=== PATIENT | female | born 1955 | race Caucasian/White ===

== ENCOUNTER 2023-09-02 13:26 | Emergency (ER) | payer MEDICARE, BC ==
[~2023-09-02] VITALS: Ht 152.4 cm; Wt 48.5 kg
[2023-09-02 14:08] VITALS: TEMP 97.7
[2023-09-02 14:56] LABS: BASOPHILS # (AUTO) 0.1 X10'3 (0-0.2); BASOPHILS % (AUTO) 0.6 % (0-1); EOSINOPHILS # (AUTO) 0.1 X10'3 (0-0.9); EOSINOPHILS % (AUTO) 1.5 % (0-6); HEMATOCRIT 47.7 % (35.0-45.0); LYMPHOCYTES # (AUTO) 1.2 X10'3 (1.1-4.8); LYMPHOCYTES % (AUTO) 12.6 % (21-51); MEAN CORPUSCULAR HEMOGLOBIN 31.3 PG (27.0-31.0); MEAN CORPUSCULAR HGB CONC 33.6 g/dL (33.0-36.5); MEAN CORPUSCULAR VOLUME 93.1 FL (78-98); MEAN PLATELET VOLUME 8.4 FL (7.4-10.4); MONOCYTES # (AUTO) 0.9 X10'3 (0-0.9); MONOCYTES % (AUTO) 9.4 % (2-12); NEUTROPHILS % (AUTO) 75.9 % (42-75); PLATELET COUNT 201 X10'3 (140-440); RED BLOOD COUNT 5.13 X10'6 (4.20-5.60); RED CELL DISTRIBUTION WIDTH 13.8 % (11.5-14.5); WHITE BLOOD COUNT 9.2 X10'3 (4.5-11.0)
[2023-09-02 14:58] LABS: APTT 27 SECONDS (22-32); INR 0.9 INR; PROTHROMBIN TIME 10.2 SECONDS (9.0-12.0)
[2023-09-02 14:59] LABS: ALANINE AMINOTRANSFERASE 14 U/L (12-78); ALBUMIN 3.1 G/DL (3.4-5.0); ALBUMIN/GLOBULIN RATIO 0.8 (1.1-1.5); ALKALINE PHOSPHATASE 52 IU/L (46-116); ANION GAP 10 (8-16); ASPARTATE AMINO TRANSFERASE 18 U/L (10-37); BILIRUBIN,TOTAL 0.4 MG/DL (0.1-1.0); BLOOD UREA NITROGEN 5 MG/DL (7-18); BUN/CREATININE RATIO 7.1 (10.0-20.0); CALCIUM 8.6 MG/DL (8.5-10.1); CHLORIDE 102 MMOL/L (99-107); GLUCOSE 87 MG/DL (70-104); LIPASE 115 U/L (16-77); POTASSIUM 3.8 MMOL/L (3.5-5.1); SODIUM 137 MMOL/L (135-145); TOTAL PROTEIN 7.2 G/DL (6.4-8.2); eCRCL 55 ML/MIN; eGFR 83 ML/MIN
[2023-09-02 16:37] LABS: BILIRUBIN,URINE SMALL (Neg); CLARITY,URINE CLEAR (Clear); COLOR,URINE YELLOW (Yellow); GLUCOSE, URINE NEGATIVE (Neg); KETONES,URINE 40 mg/dl (Neg); LEUKOCYTE ESTERASE ,URINE TRACE (Neg); NITRITES, URINE NEGATIVE (Neg); OCCULT BLOOD,URINE SMALL (Neg); PROTEIN,URINE NEGATIVE (Neg); UROBILINOGEN,URINE 0.2 E.U/dL (0.2-1.0)
[2023-09-02] MEDS ORDERED: CIPR-259 PO (16:37)
[2023-09-02] MEDS ORDERED: METR-159 PO (16:37)
[2023-09-02] MEDS ORDERED: ONDA8TAB13 PO (16:41)
[2023-09-02 16:44] VITALS: BP 113/76; PULSE 63; O2SAT 96
[2023-09-02 16:47] LABS: MUCUS STRANDS FEW /LPF (Neg); SQUAMOUS EPITHELIAL CELL,UR FEW /LPF (FEW); UA COLLECTION TYPE CLN CATCH MIDSTREAM
[2023-09-02 16:48] LABS: BACTERIA,URINE FEW /HPF (Neg); TRANSITIONAL EPI CELLS,URINE FEW /HPF
[2023-09-02 16:49] VITALS: RESP 14
== END 2023-09-02 17:06 | disposition home or self-care (01) ==
LOC: ER 13:27
DX: K57.32 Diverticulitis of large intestine without perforation or abscess without bleeding (principal)
CPT/HCPCS: 36415; 74176; 80053; 81001; 83605; 83690; 85025; 85610; 85730; 87040; 87088; 99284

== ENCOUNTER 2023-09-05 12:18 | Inpatient (IN) | payer MEDICARE, BC ==
[~2023-09-05] VITALS: Ht 165.1 cm; Wt 47.7 kg
[~2023-09-05 12:18] MED LIST: CIPR-259 PO; METR-159 PO; ONDA8TAB13 PO
[2023-09-05 12:33] LABS: BASOPHILS # (AUTO) 0.1 X10'3 (0-0.2); BASOPHILS % (AUTO) 0.7 % (0-1); EOSINOPHILS # (AUTO) 0.2 X10'3 (0-0.9); HEMATOCRIT 46.4 % (35.0-45.0); HEMOGLOBIN 15.8 g/dl (12.0-16.0); LYMPHOCYTES # (AUTO) 1.5 X10'3 (1.1-4.8); LYMPHOCYTES % (AUTO) 19.1 % (21-51); MEAN CORPUSCULAR HEMOGLOBIN 31.7 PG (27.0-31.0); MEAN CORPUSCULAR HGB CONC 34.1 g/dL (33.0-36.5); MEAN CORPUSCULAR VOLUME 92.9 FL (78-98); MONOCYTES # (AUTO) 0.7 X10'3 (0-0.9); MONOCYTES % (AUTO) 8.9 % (2-12); NEUTROPHILS # (AUTO) 5.4 X10'3 (1.8-7.7); NEUTROPHILS % (AUTO) 69.3 % (42-75); PLATELET COUNT 251 X10'3 (140-440); RED CELL DISTRIBUTION WIDTH 13.8 % (11.5-14.5); WHITE BLOOD COUNT 7.8 X10'3 (4.5-11.0)
[2023-09-05 12:52] LABS: ALANINE AMINOTRANSFERASE 11 U/L (12-78); ALBUMIN 2.8 G/DL (3.4-5.0); ALBUMIN/GLOBULIN RATIO 0.7 (1.1-1.5); ALKALINE PHOSPHATASE 47 IU/L (46-116); ANION GAP 10 (8-16); ASPARTATE AMINO TRANSFERASE 14 U/L (10-37); BILIRUBIN,TOTAL 0.3 MG/DL (0.1-1.0); BLOOD UREA NITROGEN 7 MG/DL (7-18); BUN/CREATININE RATIO 7.4 (10.0-20.0); CALCIUM 8.4 MG/DL (8.5-10.1); CHLORIDE 104 MMOL/L (99-107); CREATININE 0.95 MG/DL (0.40-0.90); GLUCOSE 137 MG/DL (70-104); POTASSIUM 3.1 MMOL/L (3.5-5.1); SODIUM 138 MMOL/L (135-145); TOTAL CARBON DIOXIDE 23.6 MMOL/L (24-32); eCRCL 43 ML/MIN; eGFR 58 ML/MIN
[2023-09-05 12:59] LABS: PRO BRAIN NATRIURETIC PEPTIDE 79 PG/ML (0-125)
[2023-09-05] MEDS: ondansetron 4mg rapidly disintigrating tab PO ONE (13:04)
[2023-09-05] MEDS: oxyCODONE IR 5mg (immed. release) tablet PO ONE (13:04)
[2023-09-05 14:18] LABS: BILIRUBIN,URINE MODERATE (Neg); CLARITY,URINE SLIGHTLY CLOUDY (Clear); COLOR,URINE YELLOW (Yellow); GLUCOSE, URINE NEGATIVE (Neg); KETONES,URINE 15 mg/dl (Neg); LEUKOCYTE ESTERASE ,URINE NEGATIVE (Neg); OCCULT BLOOD,URINE NEGATIVE (Neg); PH,URINE 5.5 (4.8-8.0); PROTEIN,URINE 30 mg/dl (Neg); UROBILINOGEN,URINE 0.2 E.U/dL (0.2-1.0)
[2023-09-05 14:20] LABS: UA COLLECTION TYPE CLN CATCH MIDSTREAM
[2023-09-05 14:23] LABS: NITRITES, URINE NEGATIVE (Neg)
[2023-09-05 14:24] LABS: BACTERIA,URINE NONE SEEN /HPF (Neg); SQUAMOUS EPITHELIAL CELL,UR FEW /LPF (FEW); WBC,URINE 0-4 /HPF (0-4)
[2023-09-05 14:25] LABS: RBC,URINE 0-2 /HPF (0-2)
[2023-09-05] MEDS ORDERED: iohexol 300mg/ml 100ml inj. ONE (14:57)
[2023-09-05] MEDS: ringers solution, lacted 1,000 ML IV ONE (15:13)
[2023-09-05] MEDS: potassium Cl 20 mEq SR tablet PO STA (17:25)
[2023-09-05] MEDS: piperacillin/tazo 4.5gm/100ml 100 ML IV STA (17:27)
[2023-09-05] MEDS ORDERED: magnesium 2GM in 50ml NS 50 ML IV PRN (18:05)
[2023-09-05] MEDS ORDERED: magnesium hydroxide 30ml (MOM) UD suspension PO PRN (18:05)
[2023-09-05] MEDS ORDERED: potassium Cl 20 mEq SR tablet PO PRN ×2 (18:05)
[2023-09-05] MEDS ORDERED: mag hydrox/Alum hydrox/simeth 30ml oral suspension PO PRN (18:05)
[2023-09-05] MEDS ORDERED: acetaminophen 325mg tablet PO PRN (18:05)
[2023-09-05] MEDS ORDERED: magnesium 4gm in 100ml NS 100 ML IV PRN (18:05)
[2023-09-05] MEDS ORDERED: normal saline 1000ml 1,000 ML IV SCH (18:05)
[2023-09-05] MEDS: nicotine 14mg patch - 24hr TD ONE (18:52)
[2023-09-05] MEDS: dextrose 5%-normal saline 1,000 ML IV SCH (18:53)
[2023-09-05] MEDS: morphine 2 MG/ML inj. syringe IV PRN (18:54)
[2023-09-05] MEDS: K and/or MAG REPLACEMENT MC SCH (19:59)
[2023-09-05] MEDS: docusate sod 100mg capsule PO SCH (20:00)
[2023-09-05] MEDS: lactobacillus rhamnosus 10,000 MMU CELLS/CAPSULE PO SCH (20:00)
[2023-09-05] MEDS: enoxaparin 30mg/0.3ml syringe SQ SCH (20:00)
[2023-09-05 21:20] VITALS: BP 125/57; PULSE 70; RESP 16; TEMP 98.3; O2SAT 98
[2023-09-05 21:25] VITALS: BP 125/57; PULSE 70; RESP 16; TEMP 98.3; O2SAT 98
[2023-09-05] MEDS: piperacillin/tazo 3.375gm/50ml 50 ML IV SCH (23:40)
[2023-09-06] VITALS (7 sets, daily range): BP systolic 103–117; BP diastolic 59–77; PULSE 64–76; RESP 14–18; TEMP 97.4–98.4; O2SAT 95–98
[2023-09-06] MEDS ORDERED: piperacillin/tazo 3.375gm/50ml 50 ML IV SCH
[2023-09-06] MEDS: potassium Cl 40MEQ/1/2NS 520ml 520 ML IV PRN ×2 (00:59→22:42)
[2023-09-06] MEDS ORDERED: MIRT-142 PO (02:00)
[2023-09-06] MEDS: morphine 2 MG/ML inj. syringe IV PRN (03:30)
[2023-09-06 08:11] LABS: BASOPHILS # (AUTO) 0.1 X10'3 (0-0.2); BASOPHILS % (AUTO) 1.2 % (0-1); EOSINOPHILS # (AUTO) 0.1 X10'3 (0-0.9); EOSINOPHILS % (AUTO) 2.5 % (0-6); HEMOGLOBIN 12.8 g/dl (12.0-16.0); LYMPHOCYTES # (AUTO) 1.2 X10'3 (1.1-4.8); LYMPHOCYTES % (AUTO) 24.6 % (21-51); MEAN CORPUSCULAR HEMOGLOBIN 31.1 PG (27.0-31.0); MEAN CORPUSCULAR HGB CONC 33.7 g/dL (33.0-36.5); MEAN CORPUSCULAR VOLUME 92.5 FL (78-98); MEAN PLATELET VOLUME 7.5 FL (7.4-10.4); MONOCYTES # (AUTO) 0.6 X10'3 (0-0.9); NEUTROPHILS # (AUTO) 3.1 X10'3 (1.8-7.7); NEUTROPHILS % (AUTO) 60.7 % (42-75); PLATELET COUNT 186 X10'3 (140-440); RED BLOOD COUNT 4.11 X10'6 (4.20-5.60); RED CELL DISTRIBUTION WIDTH 13.8 % (11.5-14.5)
[2023-09-06 08:20] LABS: ANION GAP 5 (8-16); BLOOD UREA NITROGEN 5 MG/DL (7-18); BUN/CREATININE RATIO 7.6 (10.0-20.0); CALCIUM 7.3 MG/DL (8.5-10.1); CHLORIDE 112 MMOL/L (99-107); CREATININE 0.66 MG/DL (0.40-0.90); GLUCOSE 105 MG/DL (70-104); MAGNESIUM 1.6 MG/DL (1.5-2.4); POTASSIUM 3.3 MMOL/L (3.5-5.1); SODIUM 143 MMOL/L (135-145); TOTAL CARBON DIOXIDE 25.6 MMOL/L (24-32); eCRCL 61 ML/MIN; eGFR 89 ML/MIN
[2023-09-06 10:04] LABS: C DIFF ANTIGEN NEGATIVE (NEGATIVE); C DIFF SPECIMEN=DIARRHEA? ACCEPTABLE; C DIFFICILE TOXINS A&B NEGATIVE (Neg)
[2023-09-06] MEDS: ondansetron/PF 4mg/2ml inj IV PRN (13:57)
[2023-09-06 13:59] LABS: MAGNESIUM 1.5 MG/DL (1.5-2.4); PHOSPHORUS 1.9 MG/DL (2.3-4.5)
[2023-09-06] MEDS ORDERED: magnesium 4gm in 100ml NS 100 ML IV PRN (14:15)
[2023-09-06] MEDS ORDERED: magnesium 2GM in 50ml NS 50 ML IV PRN (14:15)
[2023-09-06] MEDS ORDERED: potassium Cl 20 mEq SR tablet PO PRN (14:15)
[2023-09-06] MEDS: potassium phosphate inj 30 MMOL in normal saline 250ml IV soln 250 ML IV ONE (14:46)
[2023-09-06] MEDS: ALPRAZolam 0.25mg tablet PO PRN (19:45)
[2023-09-06] MEDS: lactose-reduced food (Ensure Enlive) - 237ml bottle PO SCH (19:49)
[2023-09-06] MEDS: K and/or MAG REPLACEMENT MC SCH (20:00)
[2023-09-07] VITALS (7 sets, daily range): BP systolic 106–161; BP diastolic 57–69; PULSE 63–93; RESP 14–18; TEMP 97.5–98.8; O2SAT 94–97
[2023-09-07 08:38] LABS: BASOPHILS % (AUTO) 0.8 % (0-1); EOSINOPHILS # (AUTO) 0.1 X10'3 (0-0.9); EOSINOPHILS % (AUTO) 3.5 % (0-6); HEMATOCRIT 34.9 % (35.0-45.0); HEMOGLOBIN 11.7 g/dl (12.0-16.0); LYMPHOCYTES # (AUTO) 1.2 X10'3 (1.1-4.8); LYMPHOCYTES % (AUTO) 29.4 % (21-51); MEAN CORPUSCULAR HEMOGLOBIN 31.6 PG (27.0-31.0); MEAN CORPUSCULAR HGB CONC 33.6 g/dL (33.0-36.5); MEAN CORPUSCULAR VOLUME 93.9 FL (78-98); MEAN PLATELET VOLUME 8.2 FL (7.4-10.4); MONOCYTES # (AUTO) 0.4 X10'3 (0-0.9); MONOCYTES % (AUTO) 10.7 % (2-12); NEUTROPHILS # (AUTO) 2.3 X10'3 (1.8-7.7); NEUTROPHILS % (AUTO) 55.6 % (42-75); PLATELET COUNT 178 X10'3 (140-440); RED BLOOD COUNT 3.71 X10'6 (4.20-5.60); RED CELL DISTRIBUTION WIDTH 13.9 % (11.5-14.5); WHITE BLOOD COUNT 4.1 X10'3 (4.5-11.0)
[2023-09-07 08:50] LABS: ALBUMIN 1.9 G/DL (3.4-5.0); ANION GAP 6 (8-16); BLOOD UREA NITROGEN 3 MG/DL (7-18); BUN/CREATININE RATIO 4.9 (10.0-20.0); CHLORIDE 113 MMOL/L (99-107); CREATININE 0.61 MG/DL (0.40-0.90); GLUCOSE 94 MG/DL (70-104); MAGNESIUM 1.5 MG/DL (1.5-2.4); POTASSIUM 3.7 MMOL/L (3.5-5.1); SODIUM 145 MMOL/L (135-145); eCRCL 66 ML/MIN; eGFR > 90 ML/MIN
[2023-09-07] MEDS ORDERED: HYDROcodone/acetaminophen 5mg/325mg tablet PO PRN (10:05)
[2023-09-07] MEDS: psyllium seed 5.8 gm packet (sugar-free) PO SCH (11:23)
[2023-09-07] MEDS: diatr meglu/diatrizoate 30ml oral sol.-(3 dose) bottle PO SCH (20:21)
[2023-09-08 06:49] LABS: BASOPHILS % (AUTO) 0.9 % (0-1); EOSINOPHILS # (AUTO) 0.2 X10'3 (0-0.9); EOSINOPHILS % (AUTO) 4.7 % (0-6); HEMATOCRIT 34.2 % (35.0-45.0); HEMOGLOBIN 11.6 g/dl (12.0-16.0); LYMPHOCYTES # (AUTO) 1.2 X10'3 (1.1-4.8); LYMPHOCYTES % (AUTO) 30.6 % (21-51); MEAN CORPUSCULAR HEMOGLOBIN 31.6 PG (27.0-31.0); MEAN CORPUSCULAR HGB CONC 33.9 g/dL (33.0-36.5); MEAN CORPUSCULAR VOLUME 93.3 FL (78-98); MEAN PLATELET VOLUME 8.4 FL (7.4-10.4); MONOCYTES # (AUTO) 0.4 X10'3 (0-0.9); MONOCYTES % (AUTO) 9.7 % (2-12); NEUTROPHILS # (AUTO) 2.2 X10'3 (1.8-7.7); NEUTROPHILS % (AUTO) 54.1 % (42-75); PLATELET COUNT 170 X10'3 (140-440); RED BLOOD COUNT 3.67 X10'6 (4.20-5.60); RED CELL DISTRIBUTION WIDTH 13.7 % (11.5-14.5)
[2023-09-08 06:50] LABS: ALBUMIN 1.9 G/DL (3.4-5.0); ANION GAP 8 (8-16); BLOOD UREA NITROGEN 3 MG/DL (7-18); BUN/CREATININE RATIO 4.9 (10.0-20.0); CALCIUM 7.1 MG/DL (8.5-10.1); CHLORIDE 113 MMOL/L (99-107); CREATININE 0.61 MG/DL (0.40-0.90); GLUCOSE 87 MG/DL (70-104); MAGNESIUM 1.4 MG/DL (1.5-2.4); SODIUM 145 MMOL/L (135-145); TOTAL CARBON DIOXIDE 23.8 MMOL/L (24-32); eCRCL 66 ML/MIN; eGFR > 90 ML/MIN
[2023-09-08 06:53] VITALS: BP 121/88; PULSE 71; RESP 18; TEMP 97.1; O2SAT 96
[2023-09-08] MEDS: potassium Cl 20 mEq SR tablet PO PRN (07:55)
[2023-09-08] MEDS: magnesium Cl slow-release 64mg tablet PO PRN (07:56)
[2023-09-08 08:00] VITALS: RESP 18
[2023-09-08 11:00] VITALS: BP 125/71; PULSE 68; RESP 16; TEMP 97.2; O2SAT 98
[2023-09-08] MEDS ORDERED: MIRT-87 PO (12:17)
[2023-09-08] MEDS: diphenoxylate/atropine tablet (Lomotil) PO PRN (13:50)
[2023-09-08] MEDS ORDERED: magnesium 2GM in 50ml NS 50 ML IV PRN (18:55)
[2023-09-08] MEDS ORDERED: magnesium 4gm in 100ml NS 100 ML IV PRN (18:55)
[2023-09-08 19:00] VITALS: BP 114/72; PULSE 66; RESP 18; TEMP 97.7; O2SAT 95
[2023-09-08] MEDS: K and/or MAG REPLACEMENT MC SCH (20:00)
[2023-09-08] MEDS: magnesium Cl slow-release 64mg tablet PO SCH (20:53)
[2023-09-08] MEDS: ALPRAZolam 0.25mg tablet PO PRN (21:53)
[2023-09-09 06:28] VITALS: BP 118/78; PULSE 58; RESP 18; TEMP 96.9; O2SAT 96
[2023-09-09 06:28] LABS: ALBUMIN 1.9 G/DL (3.4-5.0); ANION GAP 3 (8-16); BLOOD UREA NITROGEN 4 MG/DL (7-18); BUN/CREATININE RATIO 6.9 (10.0-20.0); CALCIUM 7.4 MG/DL (8.5-10.1); CHLORIDE 114 MMOL/L (99-107); CREATININE 0.58 MG/DL (0.40-0.90); GLUCOSE 90 MG/DL (70-104); MAGNESIUM 1.5 MG/DL (1.5-2.4); POTASSIUM 3.5 MMOL/L (3.5-5.1); SODIUM 145 MMOL/L (135-145); TOTAL CARBON DIOXIDE 27.8 MMOL/L (24-32); eCRCL 70 ML/MIN; eGFR > 90 ML/MIN
[2023-09-09 06:54] LABS: BASOPHILS % (AUTO) 0.8 % (0-1); EOSINOPHILS # (AUTO) 0.2 X10'3 (0-0.9); EOSINOPHILS % (AUTO) 4.1 % (0-6); HEMATOCRIT 33.6 % (35.0-45.0); HEMOGLOBIN 11.3 g/dl (12.0-16.0); LYMPHOCYTES # (AUTO) 1.4 X10'3 (1.1-4.8); LYMPHOCYTES % (AUTO) 31.5 % (21-51); MEAN CORPUSCULAR HEMOGLOBIN 31.5 PG (27.0-31.0); MEAN CORPUSCULAR HGB CONC 33.7 g/dL (33.0-36.5); MEAN CORPUSCULAR VOLUME 93.4 FL (78-98); MEAN PLATELET VOLUME 8.3 FL (7.4-10.4); MONOCYTES # (AUTO) 0.5 X10'3 (0-0.9); MONOCYTES % (AUTO) 11.2 % (2-12); NEUTROPHILS # (AUTO) 2.3 X10'3 (1.8-7.7); NEUTROPHILS % (AUTO) 52.4 % (42-75); PLATELET COUNT 182 X10'3 (140-440); RED CELL DISTRIBUTION WIDTH 13.7 % (11.5-14.5); WHITE BLOOD COUNT 4.4 X10'3 (4.5-11.0)
[2023-09-09 08:00] VITALS: RESP 18; O2SAT 96
[2023-09-09] MEDS: pantoprazole 40 MG vial IV SCH (09:19)
[2023-09-09] MEDS ORDERED: LACT1CAP26 PO (10:20)
[2023-09-09 11:41] VITALS: BP 105/58; PULSE 57; RESP 16; TEMP 97.7; O2SAT 95
[2023-09-09] MEDS ORDERED: CIPR-259 PO (12:13)
[2023-09-09] MEDS ORDERED: METR-159 PO (12:13)
[2023-09-09] MEDS ORDERED: MAGN400T29 PO (12:19)
[2023-09-09] MEDS ORDERED: POTA-207 PO (12:19)
== END 2023-09-09 13:16 | disposition home or self-care (01) | DRG 393 ==
LOC: ER 12:19 → ED HOLD 18:08 → SUR 3N 21:20
PROVIDERS: ADMIT Family Medicine; ATTEND Family Medicine
PROC: BW211ZZ Computerized Tomography (CT Scan) of Abdomen and Pelvis using Low Osmolar Contrast (ICD-10-PCS; principal; 2023-09-05)
DX: K62.89 Other specified diseases of anus and rectum (principal); E43 Unspecified severe protein-calorie malnutrition; I48.92 Unspecified atrial flutter; K57.32 Diverticulitis of large intestine without perforation or abscess without bleeding; Z68.1 Body mass index [BMI] 19.9 or less, adult; E87.6 Hypokalemia; K52.9 Noninfective gastroenteritis and colitis, unspecified; F17.210 Nicotine dependence, cigarettes, uncomplicated; E83.42 Hypomagnesemia; M41.9 Scoliosis, unspecified; M81.0 Age-related osteoporosis without current pathological fracture; Z71.6 Tobacco abuse counseling; Z79.899 Other long term (current) drug therapy
CPT/HCPCS: 36415; 71045; 74176; 74177; 80048; 80053; 81001; 83605; 83735; 83880; 84100; 84132; 84145; 84484; 85025; 87040; 87045; 87046; 87081; 87324; 87449; 89055; 93005; 96365; 97161; 97530; 99285; C9113; G0378; J1650; J2270; J2405; J2543; J3480; J3490; J7030; J7042; J7050; J7120; Q9963; Q9967